=== PATIENT | male | born 1980 | race Caucasian/White ===

== ENCOUNTER 2022-07-15 20:45 | Emergency (ER) | payer OTHER, SELFPAY ==
--- NOTE | ~2022-07-15 | XR_ITS ---
PA, oblique, and lateral views of the left third digit Clinical history: Dislocation, trauma FINDINGS: There is probable dorsal dislocation versus severe dorsal subluxation at the left third PIP joint. No fracture identified. Remaining osseous structures are intact. Remaining visualized joint s paces are intact. Soft tissues are unremarkable. IMPRESSION: Dorsal dislocation versus severe dorsal subluxation of the left third PIP joint. No fracture seen. Reviewed, dictated and finalized at location . [employer] IMPRESSION: Dorsal dislocation versus severe dorsal subluxation of the left third PIP joint . No fracture seen.
--- NOTE | ~2022-07-15 | XR_ITS ---
PA, oblique, and lateral views of the left third digit CLINICAL HISTORY: Postreduction COMPARISON: 07/15/2022 at 9:09 PM FINDINGS: Previously noted dislocation has been successfully reduced. Osseous alignment is anatomic. Suspected oblique, intra-articular fracture of the volar aspect of the base of the third middle phala nx. Mild soft tissue swelling noted. IMPRESSION: Successful reduction of previously noted third PIP joint dislocation. Suspected oblique, intra-articular fracture of the volar aspect of the base of the third middle phala nx. Reviewed, dictated and finalized at location M. [employer] IMPRESSION: Successful reduction of previously noted third PIP joint dislocation. Suspected oblique, intra-articular fracture of the volar aspect of the base of the third middle phalanx.
[2022-07-15 21:25] VITALS: BP 136/93; PULSE 79; RESP 18; TEMP 36.7; O2SAT 100
--- NOTE | 2022-07-15 22:30 | PC.NURSE ---
Dr. Todd at bedside to reduce l 3rd digit. pt tolerating well.
--- NOTE | 2022-07-15 22:32 | ED.GENADULT ---
HPI - General Adult General Chief complaint: Extremity Injury, Upper Stated complaint: dislocated left middle third finger Time Seen by Provider: 07/15/22 22:19 History of Present Illness HPI narrative: 42-year-old male presented to the emergency department for evaluation of a dislocation for his left third finger. Patient was playing soccer when he got kicked in the hand. Patient denies any other pain or injury. Related Data Allergies Allergy/AdvReac Type Severity Reaction Status Date / Time No Known Allergies Allergy Verified 07/15/22 22:30 Review of Systems Review of Systems: CONSTITUTIONAL: Denies fever, chills, or sweats. EYES: Denies visual changes, redness, or discharge. ENT: Denies rhinorrhea, congestion, sore throat, or otalgia. CARDIOVASCULAR: Denies chest pain, palpitations, or edema. RESPIRATORY: Denies cough or dyspnea. GASTROINTESTINAL: Denies abdominal pain, nausea, vomiting, or diarrhea. GENITOURINARY: Denies dysuria or hematuria. SKIN: Denies rash or itching. MUSCULOSKELETAL: See HPI NEUROLOGIC: Denies headache, numbness, or weakness. Exam Narrative: APPEARANCE: Well appearing, no pain, no distress, well-nourished. HEAD: normocephalic, atraumatic. EYES: PERRLA/EOMI, conjunctivae clear. NOSE: Normal no drainage RESPIRATORY: Airway patent, respirations nonlabored. Clear to auscultation bilaterally, no rales, rhonchi, wheezing. CARDIOVASCULAR: Regular rate and rhythm without murmurs rubs or gallops. ABDOMINAL: Soft, nontender, nondistended, normal bowel sounds MUSCULOSKELETAL: Deformity of left index finger. Neurovascular intact. NEURO: Alert. Cranial nerves II through XII intact. Grossly intact SKIN: Warm, dry. Normal Color Course Course Emergency Course: X-ray showed subluxation/dislocation but no underlying fractures. Patient was offered bupivacaine for a digital block but patient was also comfortable with just attempting reduction. Reduction was attempted without anesthetic and this was successful. Repeat x-ray was performed. Patient was given ibuprofen for pain control and provided a finger splint and ice therapy. Patient declined a finger splint and declined ibuprofen. Patient was encouraged of close follow-up with hand surgery. All question concerns were addressed. Vital Signs Vital signs: Vital Signs Temperature 98.0 F 07/15/22 21:25 Pulse Rate 79 07/15/22 21:25 Respiratory Rate 18 07/15/22 21:25 Blood Pressure 136/93 H 07/15/22 21:25 Pulse Oximetry 100 07/15/22 21:25 Temperature 98.0 F 07/15/22 21:25 Pulse Rate 79 07/15/22 21:25 Respiratory Rate 18 07/15/22 21:25 Blood Pressure 136/93 H 07/15/22 21:25 Pulse Oximetry 100 07/15/22 21:25 Procedures Orthopedic Joint Reduction Joint #1: Time Out Performed: Yes Side: left Joint Reduction Location: finger Analgesia: none Pre-Procedure Neuro Vascular Exam: normal Local Anesthesia: none Shoulder Technique Used (if applicable): traction/counter-traction Technique used: traction/counter-traction and direct manipulation Post-reduction neuro exam: intact and no change Post-reduction vascular: intact and no change Post Reduction X-Ray Obtained: Yes Post Reduction X-Ray Results: reduced Splint Applied: Yes Patient Tolerated Procedure: well Medical Decision Making Vital Signs Vital Signs: Vital Signs Temperature 98.0 F 07/15/22 21:25 Pulse Rate 79 07/15/22 21:25 Respiratory Rate 18 07/15/22 21:25 Blood Pressure 136/93 H 07/15/22 21:25 Pulse Oximetry 100 07/15/22 21:25 Temperature 98.0 F 07/15/22 21:25 Pulse Rate 79 07/15/22 21:25 Respiratory Rate 18 07/15/22 21:25 Blood Pressure 136/93 H 07/15/22 21:25 Pulse Oximetry 100 07/15/22 21:25 Imaging Data My impression: Post reduction XR: Dislocated PIP of L third finger was reduced Discharge Plan Discharge Clinical Impression:
--- NOTE | 2022-07-15 22:45 | PC.NURSE ---
pt refused ice pack and splint. states he has both at home. dr. manzanares was able to reduce finger. pms intact and pt has no complaints.
== END 2022-07-15 22:55 | disposition home or self-care (01) ==
PROVIDERS: Emergency Provider Emergency Medicine
DX: S63.283A Dislocation of proximal interphalangeal joint of left middle finger, initial encounter (principal); W51.XXXA Accidental striking against or bumped into by another person, initial encounter; Y93.66 Activity, soccer
CPT/HCPCS: 26770; 73140; 99284; 99285